=== PATIENT | female | born 1950 | race Hispanic/Latino ===

== ENCOUNTER 2018-09-19 17:49 | Observation (INO) | payer MEDICARE ==
[~2018-09-19] VITALS: Ht 167.6 cm; Wt 132.4 kg
[~2018-09-19 17:49] MED LIST: CEFDINIR300 MG PO; DIOVAN160 MG PO; FOLIC ACID1 MG PO; GABAPENTIN100 MG PO; ISOSORBIDE MONO30 MG PO; LEVOTHYROXINE300 MCG PO; LEVOTHYROXINE50 MCG PO; MELOXICAM7.5 MG PO; MUCINEX DM PO; NITROSTAT0.4 MG; NITROSTAT0.4 MG SL; PRAVASTATIN SOD10 MG PO; PROAIR HFA8.5 GM IH; QUETIAPINE FUMA25 MG PO; SPIRIVA HANDIH18 MCG INH; SYMBICORT 80-10.2 GM INH; SYMBICORT 80-46.9 GM IH; Z.0.CARVEDILOL6.25 M PO; Z.0.CELEXA40 MG PO; Z.0.DALIRESP500 MCG PO; Z.0.DIOVAN160 MG PO; Z.0.FOLIC ACID0.4 MG PO; Z.0.LANTUS 3ML100 UN SQ; Z.0.METFORMIN HCL500 PO; Z.0.NORCO 5-325 TA1 PO; Z.0.PANTOPRAZOLE SO4 PO; Z.0.SIMVASTATIN10 MG PO; Z.0.TRADJENTA5 MG PO; Z.1.FERROUS SULFAT32 PO; Z.1.POTASSIUM CHLO10 PO; [UNRECOGNIZED DRUG - OTHER] PO; [UNRECOGNIZED DRUG - OTHER] PO; [UNRECOGNIZED DRUG - OTHER] PO; [UNRECOGNIZED DRUG - OTHER] PO
--- OUTSIDE RECORDS SUMMARY | 2018-09-19 17:52 | XMS REPORT | Clinical Summary ---
Author Author [facility] Address Unknown Phone Unavailable Care Team Providers Care Criminal Justice Department Chair Name Role Phone Tigre Aguiar MD PCP Allergies No Known Allergies Medications End Date Status Medication Sig Dispensed Refills Start Date Active valsartan (DIOVAN) 320 MG Take 320 mg 0 tablet by mouth daily. Active folic acid (FOLVITE) 1 MG Take 1 mg by 0 tablet mouth daily. Active carvedilol (COREG) 6.25 Take 6.25 mg 0 MG tablet by mouth 2 (two) times a day with meals. Active citalopram (CeleXA) 40 MG Take 40 mg by 0 tablet mouth daily. Active isosorbide dinitrate Take 30 mg by 0 (ISORDIL) 30 MG tablet mouth 4 (four) times a day. Active QUEtiapine (SEROquel) 50 Take 50 mg by 0 MG tablet mouth nightly. Active insulin ASPART (NovoLOG) Inject 43 0 100 unit/mL injection Units under the skin 3 (three) times a day before meals. Active insulin detemir (LEVEMIR) Inject 83 0 100 unit/mL injection Units under the skin 2 (two) times a day. Active budesonide-formoterol Inhale 2 0 (SYMBICORT) 80-4.5 puffs as mcg/actuation inhaler needed. Active levothyroxine (SYNTHROID, Take 200 mcg 0 LEVOXYL) 200 mcg tablet by mouth every morning. Active Problems Problem Noted Date Cataract mature, total senile 04/29/2017 Family History Medical History Relation Name Comments Cancer Father Diabetes Maternal Grandmother Diabetes Mother Heart disease Mother Relation Name Status Comments Father Maternal Grandmother Mother Social History Date Tobacco Use Types Packs/Day Years Used Never Smoker Smokeless Tobacco: Never Used Tobacco Cessation: Counseling Given: No Alcohol Use Drinks/Week oz/Week Comments No Sex Assigned at Date Recorded Not on file Industry Job Start Date Occupation Not on file Not on file Not on file Travel End Travel History Travel Start No recent travel history available. Last Filed Vital Signs Not on file Plan of Treatment Health Maintenance Due Date Last Done Comments CERVICAL CANCER SCREENING 1973 BREAST CANCER SCREENING 2002 COLON CANCER SCREENING 2002 SHINGLES VACCINES (1 of 2002 2) PNEUMOCOCCAL 2017 POLYSACCHARIDE VACCINE AGE 65 AND OVER PNEUMOCOCCAL-13 2017 INFLUENZA VACCINE 04/22/2018 Implants Device Identifier Shelf Expiration Date Model / Serial / Lot Implanted Type Area Manufactur er 08/21/2018 [id number] 195 / [id number] / [id number] Lens Iol Asymet Bicnvx Ant Mltpc Intraocula Right: Eye TAMICA +19.5d 10deg 6x13mm Acrysof - r Lens LABORATORI [id number] - [id number] Implant [employer] Implanted: Qty: 1 on 04/29/2017 by David Teran MD Results Not on fileafter 09/18/2017 Insurance Payer Benefit Subscriber ID Type Phone Address Plan / Group AETNA MEDICARE AETNA xxxxxxxx HMO MEDICARE HMO/PPO [facility] ([place]) [place] [address] Advance Directives Patient has advance care planning documents on file. For more information, eze mcdaniel contact: Emmanuel Foley [address] [place] [address]
--- OUTSIDE RECORDS SUMMARY | 2018-09-19 17:52 | XMS REPORT ---
Author [facility] Address Unknown Phone Unavailable Care Team Providers Care Account Contact Associate Name Role Phone Ruthie VALADEZ Unavailable Unavailable Payers Payer Name Policy Type Policy Number Effective Date Expiration Date Problems This patient has no known problems. Allergies, Adverse Reactions, Alerts Allergy Name Allergy Type Status Severity Reaction(s) Onset Date Inactive Date Treating Clinician Comments No Known Allergies DA Active U 2018-02-03 00:00:00 Medications This patient has no known medications. Results Test Description Test Time Test Comments Text Results Atomic Results Result Comments CT ABDOMEN/PELVIS W [facility] [address] [place], [place] [address] Patient Name: CARLENE REED MR #: [id number] : 1950 Age/Sex: 66/F Req #: [id number] Adm Physician: Ordered by: LUCHO VALADEZ MD Report #: [id number] Location: ER Room/Bed: Procedure: [id number] CT/CT ABDOMEN/PELVIS W Exam Date: 07/30/17 Exam Time: 224 REPORT STATUS: Signed EXAM: CT Abdomen and Pelvis WITH contrast INDICATION: Abdominal pain, diarrhea COMPARISON: None. TECHNIQUE: Abdomen and pelvis were scanned utilizing a multidetector helical scanner from the lung base to the pubic symphysis after administration of IV contrast. Coronal and sagittal reformations were obtained. Routine protocol was performed. Scan was performed when during portal venous phase. IV CONTRAST: 100 mL of Isovue-370 ORAL CONTRAST: Water RADIATION DOSE: Total DLP: 811.35 mGy*cm Estimated effective dose: (DLP x 0.015 x size factor) mSv COMPLICATIONS: None FINDINGS: LINES and TUBES: Left posterior spinal stimulator with tip along the lower thoracic spine LOWER THORAX: Unremarkable HEPATOBILIARY: No focal hepatic lesions. No biliary ductal dilation. GALLBLADDER: There are cholecystectomy clips. SPLEEN: No splenomegaly. PANCREAS: No focal masses or ductal dilatation. ADRENALS: No adrenal nodules KIDNEYS/URETERS: Kidneys enhance symmetrically. No hydronephrosis. No cystic or solid mass lesions. No stones. GI TRACT: No abnormal distention, wall thickening, or evidence of bowel obstruction. Appendix is not clearly identified. There is however no fat stranding or adenopathy in the right lower quadrant to suggest appendicitis. PELVIC ORGANS/BLADDER: Unremarkable. LYMPH NODES: No lymphadenopathy. VESSELS: There is moderate atherosclerotic disease in the aorta and major arterial branches. PERITONEUM / RETROPERITONEUM: No free air or fluid. BONES: There are degenerative changes in the lumbar spine. SOFT TISSUES: Unremarkable. IMPRESSION: 1. No evidence of acute intra-abdominal or pelvic abnormality. Signed by: Dr. Darrion Villarreal M.D. on 07/30/2017 3:10 AM Dictated By: DARRION BAH MD 9 Transcribed By: MIGUE on 07/30/17309 COPY TO: LUCHO VALADEZ MD
[2018-09-19] MEDS ORDERED: DEXTROSE 50% SYRINGE 50 ML IV ONE (19:15)
--- NOTE | 2018-09-19 19:27 | NUR ---
1 amp of d50 given for blood sugar of 55 .
[2018-09-19 19:29] LABS: BASOPHILS % 0.2 % (0.0-1.0); EOSINOPHILS # (AUTO) 0.2 (0.0-0.4); EOSINOPHILS % 2.3 % (0.0-6.0); HEMATOCRIT 29.4 % (34.2-44.1); HEMOGLOBIN 10.2 g/dL (12.0-16.0); LYMPHOCYTES # (AUTO) 1.7 (1.0-3.2); LYMPHOCYTES % 19.1 % (18.0-39.1); MEAN CORPUSCULAR HEMOGLOBIN 32.9 pg (28-32); MEAN CORPUSCULAR HGB CONC 34.7 g/dL (31-35); MEAN CORPUSCULAR VOLUME 94.8 fL (81-99); MONOCYTES # (AUTO) 0.5 (0.2-0.8); MONOCYTES % 6.1 % (4.4-11.3); NEUTROPHILS # (AUTO) 6.4 (2.1-6.9); PLATELET COUNT 265 x10e3/uL (140-360); RED CELL DISTRIBUTION WIDTH 14.9 % (11.7-14.4)
[2018-09-19] MEDS ORDERED: DEXTROSE 5%/0.9% SOD CHL 1,000 ML IV ONE (19:30)
[2018-09-19] MEDS ORDERED: DEXTROSE 50% SYRINGE 50 ML IV STA (19:43)
[2018-09-19 19:44] LABS: ALANINE AMINOTRANSFERASE 12 IU/L (0-55); ALBUMIN/GLOBULIN RATIO 0.8 (0.8-2.0); ALKALINE PHOSPHATASE 96 IU/L (40-150); ANION GAP 13.7 mmol/L (8-16); BLOOD UREA NITROGEN 19 mg/dL (7-26); BUN/CREATININE RATIO 22 (6-25); CALCIUM 8.6 mg/dL (8.4-10.2); CARBON DIOXIDE 28 mmol/L (22-29); CHLORIDE 101 mmol/L (98-107); CREATININE, SERUM 0.86 mg/dL (0.57-1.11); EST GLOMERULAR FILTRATION RATE > 60 ML/MIN (60-); MAGNESIUM 2.2 MG/DL (1.3-2.1); POTASSIUM 3.7 mmol/L (3.5-5.1); SODIUM 139 mmol/L (136-145)
[2018-09-19 19:58] LABS: GLUCOSE 46 mg/dL (74-118)
[2018-09-19 20:06] LABS: CLARITY,URINE CLEAR (CLEAR); COLOR,URINE YELLOW (YELLOW)
[2018-09-19 20:07] LABS: BILIRUBIN,URINE NEGATIVE (NEGATIVE); KETONES,URINE NEGATIVE (NEGATIVE); LEUKOCYTE ESTERASE ,URINE TRACE (NEGATIVE); NITRITE,URINE NEGATIVE (NEGATIVE); PROTEIN,URINE DIPSTICK NEGATIVE (NEGATIVE); URINE UROBILINOGEN 0.2 mg/dL (0.2 - 1)
[2018-09-19 20:10] LABS: BACTERIA,URINE FEW /HPF; EPITHELIAL CELLS,URINE FEW /LPF; RBC,URINE 0-5 /HPF (0-5)
[2018-09-19] MEDS ORDERED: ACETAMINOPHEN 325 MG TAB PO ONE (20:45)
--- NOTE | 2018-09-19 21:41 | NUR ---
pt's daughter adilene cALLED WITH CONTACT NUMBER FOR PT TO CALL FOR A [facility]--[phone]
[2018-09-20] VITALS (8 sets, daily range): BP systolic 122–170; BP diastolic 65–88
--- OUTSIDE RECORDS SUMMARY | 2018-09-20 01:23 | XMS REPORT | Clinical Summary ---
Author Author [facility] Address Unknown Phone Unavailable Care Team Providers Care Administration Vice President Name Role Phone Tigre Aguiar MD PCP [...] Area Manufactur er 08/21/2018 [id number] 195 / [id number] / [id number] Lens Iol Asymet Bicnvx Ant Mltpc Intraocula Right: Eye TAMICA +19.5d 10deg 6x13mm Acrysof - r Lens [employer]ATORI [id number] - [id number] Implant [employer] Implanted: Qty: 1 on 04/29/2017 by David Teran MD Results Not on fileafter 09/19/2017 Insurance Payer Benefit Subscriber ID Type Phone Address Plan / Group AETNA MEDICARE AETNA xxxxxxxx HMO MEDICARE HMO/PPO [facility] ([place]) [place] [address] Advance Directives Patient has advance care planning documents on file. For more information, eze mcdaniel contact: Emmanuel Foley [address] [place] [address]
[2018-09-20] MEDS ORDERED: LEVETIRACETAM500 MG PO (01:36)
[2018-09-20] MEDS ORDERED: LEVEMIR (01:36)
[2018-09-20] MEDS ORDERED: FUROSEMIDE80 MG PO (01:36)
[2018-09-20] MEDS ORDERED: HYDROCODON-ACE1 EA11 PO (01:36)
[2018-09-20] MEDS ORDERED: LEVOTHYROXINE75 MCG PO (01:39)
[2018-09-20] MEDS ORDERED: CARVEDILOL6.25 MG PO (01:39)
[2018-09-20] MEDS ORDERED: SYMBICORT 16010.2 GM INH (01:39)
[2018-09-20] MEDS ORDERED: NOVOLOG100 UNITS1 (01:39)
[2018-09-20] MEDS ORDERED: LOSARTAN POTAS100 MG PO (01:39)
[2018-09-20] MEDS ORDERED: CITALOPRAM HBR40 MG PO (01:39)
--- NOTE | 2018-09-20 02:16 | NUR ---
Pt received from ER. Pt A&O and in no apparent distress. Pt put on 2LNC and given walker to ambulate. Pt on D5 NS @ 100ml. Pt has no current complaints of pain and last BS was 93. All safety measures ensured, bed alarm on, and pt call reyez near. Pt encouraged to use call reyez for assistance.
--- NOTE | 2018-09-20 06:53 | NUR ---
handoff report and walking rounds with outgoing night filler nurse.
--- NOTE | 2018-09-20 06:56 | NUR ---
report given to oncoming nurse and walking rounds complete.
[2018-09-20] MEDS: LEVOTHYROXINE SODIUM 75 MCG TAB PO SCH (07:30)
[2018-09-20] MEDS: BUDESONIDE/FORMOTEROL 160/4.5MCG INHALER INH SCH (07:47)
[2018-09-20] MEDS: CITALOPRAM HYDROBROMIDE 20 MG TAB PO SCH (08:11)
[2018-09-20] MEDS: CARVEDILOL 3.125 MG TAB PO SCH ×2 (08:12→16:57)
[2018-09-20] MEDS: ISOSORBIDE MONONITRATE 30 MG TAB CR PO SCH (08:13)
[2018-09-20] MEDS: LEVETIRACETAM 500 MG TAB PO SCH ×2 (08:13→16:57)
[2018-09-20] MEDS: FUROSEMIDE 40 MG TAB PO SCH (08:13)
[2018-09-20] MEDS: LOSARTAN POTASSIUM 100 MG TAB PO SCH (08:13)
[2018-09-20] MEDS: GABAPENTIN 100 MG CAP PO SCH ×2 (08:13→16:57)
[2018-09-20] MEDS ORDERED: CEFTRIAXONE SOD 1 GM VIAL IV SCH (11:45)
[2018-09-20] MEDS ORDERED: DEXTROSE 50% SYRINGE 50 ML IV PRN (11:45)
--- NOTE | 2018-09-20 12:26 | History and Physical ---
CHIEF COMPLAINT: Low blood sugar whole day yesterday. HPI: This is a 67-year-old female with history of CA breast, left mastectomy, and mass to the lung, not getting good appetite, not eating good. So, the patient was taking insulin and blood sugar dropped yesterday. Patient came to the ER. ER blood sugar was 30s and 40s. Patient was admitted for observation. No chest pain. No abdominal pain. No nausea. No vomiting. No diarrhea. No constipation. No leg pain. No leg swelling. No cough. No backache. PAST MEDICAL HISTORY 1. Carcinoma of breast. 2. 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 3. Diabetes mellitus type 1. 4. Hypertension. 5. COPD. 6. Obstructive sleep apnea. PAST SURGICAL HISTORY: History of left mastectomy. HABITS: Denies smoking. Denies alcohol. Denies illicit drug use. SOCIAL HISTORY: Patient lives with 95-year-old dad. MEDICATION LIST: Attached. REVIEW OF SYSTEMS CONSTITUTIONAL: Generalized fatigue and weakness. HEENT: No diplopia. No blurring of vision. CARDIOPULMONARY: No chest pain. No shortness of breath. ALIMENTARY: No nausea. No vomiting. MUSCULOSKELETAL: No joint pain. CENTRAL NERVOUS SYSTEM: No focal weakness. No seizures. PHYSICAL EXAMINATION GENERAL: This is a 67-year-old female who is alert and oriented x3, no gross distress. VITAL SIGNS: Temperature 98.2, pulse 58, respiratory rate 19, blood pressure 170/75. HEENT: Head is atraumatic and normocephalic. Pupils bilaterally equal and reactive to light. Extraocular muscles intact. NECK: Supple. No JVD. No carotid bruit. LUNGS: Clear to auscultation and percussion bilaterally. No added sound. HEART: S1 and S2. Regular rate and rhythm. No S3. No S4. No murmurs. ABDOMEN: Soft and nontender. No guarding. No rigidity. EXTREMITIES: No edema. Peripheral pulses +1. FIRE TRUCK DRIVER: Grossly nonfocal. LABORATORY DATA: Sodium 139, potassium 3.7, sugar 46, BUN and creatinine normal. LFTs normal. White count 8.8, hemoglobin 10.2, hematocrit 29.4, platelet is 265. Urine test, leukocyte, wbc 6 to 10. Will use IV Rocephin 1 g q.24 hours. Urine culture. Off IV fluid. Monitor blood sugar a.c. and at bedtime. Endocrine consult, Dr. Junior. Hold insulin Levemir and NovoLog. Job#: [id number] BHASKAR
[2018-09-20] MEDS: CEFTRIAXONE SOD 1 GM/NS 50 ML 50 ML IV SCH (12:32)
--- NOTE | 2018-09-20 13:53 | Diagnostic Imaging Report ---
EXAMINATION: CHEST 2 VIEWS INDICATION: Lung cancer, hypoglycemia COMPARISON: Chest x-ray 06/30/2012, a chest x-ray from 2016 is not available for comparison. FINDINGS: PA and lateral views TUBES and LINES: MediPort catheter terminates lateral to the SVC. Spinal stimulator is stable in position. LUNGS: Lungs are well inflated. There is no evidence of pneumonia or pulmonary edema. PLEURA: No pleural effusion or pneumothorax. HEART AND MEDIASTINUM: The cardiomediastinal silhouette is unremarkable.. BONES AND SOFT TISSUES: No focal osseous lesions. Surgical clips are in the left axilla. UPPER ABDOMEN: No free air under the diaphragm. IMPRESSION: 1. Malpositioned MediPort catheter. Correlation with x-rays obtained at the time of catheter placement are needed to confirm stability. No pneumothorax. 2. No acute pulmonary process. Signed by: Dr. Jeff Alex MD on 09/20/2018 1:49 PM
[2018-09-20] MEDS ORDERED: INSULIN LISPRO 100 UNIT/1 ML 3ML VIAL SQ SCH (16:30)
[2018-09-20] MEDS: INSULIN LISPRO 100 UNIT/1 ML 3ML VIAL SQ SCH ×5 (16:30→20:58)
[2018-09-20 16:32] LABS: FREE T4 (FREE THYROXINE) 0.95 ng/dL (0.9-1.8); THYROID STIMULATING HORMONE 1.518 uIU/mL (0.350-4.940)
[2018-09-20] MEDS ORDERED: INSULIN DETEMIR 100 UNIT/ML PEN SQ SCH (17:00)
--- NOTE | 2018-09-20 18:15 | Consultation ---
DATE OF CONSULTATION: September 20, 2018 ENDOCRINE CONSULTATION PATIENT OF: Dr. Tigre Aguiar. Thank you very much for referring this patient. This is a 67-year-old lady who is referred to me for evaluation of diabetes mellitus and hypoglycemia. Patient was brought to the emergency room at [facility] with altered mental status and blood sugar of 46. She was given some dextrose, but despite of that her blood sugars stayed around 80 to 90. She was admitted to the hospital for further evaluation. At home, the patient takes about 80 units of Lantus twice a day and Humalog about 46 to 48 with each meal. In the last few days, patient has not been able to eat well, but she continued taking her insulin scheduled. Patient was diagnosed to have lung cancer recently. She has bilateral lung cancer and was supposed to have chemotherapy done next week. She also is status post breast cancer for which she received chemotherapy in May and December. Patient also has history of hypothyroidism. She is on Synthroid 0.075 mg once daily. She also has history of coronary artery disease, congestive cardiac failure, hypertension, and hyperlipidemia. PHYSICAL EXAMINATION GENERAL: Today, the patient is alert, awake, a little bit apprehensive. She is moderately overweight. VITAL SIGNS: Her heart rate is around 78 and blood pressure 140/80 mmHg. HEENT: Essentially unremarkable. Thyroid is palpable. Clinically, she looks near euthyroid. CHEST: Bilateral vesicular breathing. She has got bilateral bronchospasm and basilar rales. CARDIAC: Both 1st and 2nd heart sounds. There is no 3rd or 4th heart sound. Ejection sound grade 2/6. EXTREMITIES: Patient has evidence of diabetic sensory neuropathy in both lower extremities. CLINICAL IMPRESSION 1. Hypoglycemia, multifactorial, probably related to huge insulins dose as well as poor oral intake. 2. Lung cancer. 3. Status post breast cancer. 4. Congestive cardiac failure. 5. Coronary artery disease. 6. Hypertension. 7. Hypothyroidism. The plan at this time is to monitor her blood sugars closely. We will do a hemoglobin A1c, thyroid function test, and restart her insulin scheduled but on a smaller dose and I gave her all the instructions to the patient about how to adjusting insulin dose when her oral intake is low or when she is getting chemotherapy. Thanks again for referring this patient. I will be following this patient with you. Job#: [id number] BLAIR
--- NOTE | 2018-09-20 19:22 | NUR ---
Report received and walking rounds complete. Pt resting in bed and in no apparent distress. Pt on 2LNC and uses walker to ambulate. Pt has no IV access and awaiting for IV start. All safety measures ensured, bed alarm on, and pt call reyez near. Pt encouraged to use call reyez for assistance.
[2018-09-20] MEDS ORDERED: SIMVASTATIN 20 MG TAB PO SCH (21:00)
--- NOTE | 2018-09-20 22:00 | NUR ---
New IV placed R Forearm 20 G S/L.
[2018-09-20] MEDS: HYDROCODONE/APAP 5MG-325MG TAB PO PRN (22:45)
[2018-09-21] VITALS: BP 185/76
[2018-09-21 04:00] VITALS: BP 144/66
[2018-09-21 05:20] LABS: ANION GAP 11.1 mmol/L (8-16); BLOOD UREA NITROGEN 14 mg/dL (7-26); BUN/CREATININE RATIO 17 (6-25); CALCIUM 8.8 mg/dL (8.4-10.2); CARBON DIOXIDE 32 mmol/L (22-29); CHLORIDE 100 mmol/L (98-107); CREATININE, SERUM 0.82 mg/dL (0.57-1.11); EST GLOMERULAR FILTRATION RATE > 60 ML/MIN (60-); GLUCOSE 212 mg/dL (74-118); POTASSIUM 4.1 mmol/L (3.5-5.1); SODIUM 139 mmol/L (136-145)
[2018-09-21 05:42] LABS: FREE T4 (FREE THYROXINE) 0.85 ng/dL (0.9-1.8); THYROID STIMULATING HORMONE 3.155 uIU/mL (0.350-4.940)
--- NOTE | 2018-09-21 07:18 | NUR ---
Report given to oncoming nurse and walking rounds complete.
[2018-09-21] MEDS: INSULIN LISPRO 100 UNIT/1 ML 3ML VIAL SQ SCH ×6 (07:30→17:00)
[2018-09-21 07:46] VITALS: BP 161/72
[2018-09-21] MEDS: BUDESONIDE/FORMOTEROL 160/4.5MCG INHALER INH SCH (08:37)
[2018-09-21] MEDS: CITALOPRAM HYDROBROMIDE 20 MG TAB PO SCH (09:29)
[2018-09-21] MEDS: LEVOTHYROXINE SODIUM 75 MCG TAB PO SCH (09:29)
[2018-09-21] MEDS: CARVEDILOL 3.125 MG TAB PO SCH ×2 (09:35→17:56)
[2018-09-21] MEDS: FUROSEMIDE 40 MG TAB PO SCH (09:36)
[2018-09-21] MEDS: GABAPENTIN 100 MG CAP PO SCH ×2 (09:36→17:57)
[2018-09-21] MEDS: ISOSORBIDE MONONITRATE 30 MG TAB CR PO SCH (09:36)
[2018-09-21] MEDS: LOSARTAN POTASSIUM 100 MG TAB PO SCH (09:36)
[2018-09-21] MEDS: LEVETIRACETAM 500 MG TAB PO SCH ×2 (09:36→17:56)
--- NOTE | 2018-09-21 10:24 | NUR ---
SOCIAL WORK INITIAL ASSESSMENT Reimbursement Consultant to bedside to discuss plan of care with patient/family. CM/SW role and care transitions discussed. Anticipated discharge plan discussed along with duration of care. CM/SW discussed patients right to make decisions in care. CM/SW work hours given. Patient lives: IN OWN HOUSE WITH DAD Admit/Transfer: VIA ED FROM HOME POA/Emergency contact: DAUGHTER HERMAN [phone] Current/Previous Home Health: HAS A NURSE THAT COMES 1 TIME A WEEK THAT IS SET UP THROUGH INSURANCE BUT THINKS IT IS ENDING THIS WEEK. PCP/Follow-up Care: Bossman CHAUDHRY Current/Previous DME: CPAP O2 WALKER AND A CANE Other Services: NONE Employment Status: DISABILITY Areas of Concerns: NA Referral Needs: NA Education Needs: NA IMM/FRY given and signed (if applicable): UPON ADMISSION Goal for discharge: RETURN HOME INDEPENDENTLY CM/SW left business card at the bedside with contact information. Name and number was also written on the patients whiteboard. Patient verbalized understanding of discussion. CM will follow-up with ongoing discharge and transition of care needs.
[2018-09-21 11:11] VITALS: BP 161/72
[2018-09-21 11:39] VITALS: BP 110/55
[2018-09-21] MEDS: CEFTRIAXONE SOD 1 GM/NS 50 ML 50 ML IV SCH (12:30)
--- NOTE | 2018-09-21 13:00 | NUR ---
Report given to oncoming nurse. Patient is resting in bed without any complaints voiced. Call reyez within reach.
[2018-09-21] MEDS: HYDROCODONE/APAP 5MG-325MG TAB PO PRN (13:03)
--- NOTE | 2018-09-21 13:50 | NUR ---
dr clarke on unit, pt ok to dc once cleared by consults. dr dan on unit, updated pt insulin regime and ok to dc. per dr clarke, consulted and notified dr hannon regarding cxr showing cath misaligned. dr hannon stated would see pt this afternoon/evening. pt ok to dc once cleared by dr hannon.
[2018-09-21 15:29] VITALS: BP 125/60
--- NOTE | 2018-09-21 15:36 | Discharge Summary ---
PATIENT LOCATION: Room 176. CONSULTATIONS: Dr. Junior, train operations supervisor. Dr. Reyna, oncologist. FINAL DIAGNOSIS: Severe hypoglycemia, resolved. OTHER DIAGNOSES 1. Diabetes mellitus type 2 with insulin resistance. 2. Hypertension. 3. Hyperlipidemia. 4. Carcinoma of breast with lung metastasis. 5. Obstructive sleep apnea. 6. Morbid obesity. 7. Malposition of Port-A-Cath on chest x-ray. 8. Urinary tract infection. BRIEF HOSPITAL COURSE: A 67-year-old female was admitted from ER with complaints of severe low blood glucose at home. Patient was feeling weak and lost appetite. Her blood glucose went up to 30s and 40s at home as per report, and patient's insulin regimen was kept on hold. Dr. Junior, train operations supervisor, was consulted. The patient was kept on sliding scale. Her blood glucose level got improved. Patient still has a low appetite. Dr. Junior adjusted her insulin regimen. Patient was also found having UTI on urinalysis. She was afebrile, does not have any leukocytosis. Urine culture did not show any growth here. She was started on ceftriaxone IV. Patient wants to go home today. A chest x-ray did not show any sign of pneumonia or pleural effusion, but her Port-A-Cath was noted in malposition. Dr. Kiersten Reyna, her regular oncologist, was consulted for Port-A-Cath malpositioning. Patient would be discharged after clearance by Dr. Reyna. She is prescribed Macrobid p.o. for UTI. Patient is advised to follow the recommendation of Dr. Junior for insulin regimen and follow up with him in the office. Patient was otherwise uneventful during this hospital stay. VITALS: BP 110/55, pulse 73, temp 98.4, respiration 18, SpO2 94% at room air. PHYSICAL EXAMINATION GENERAL: Alert, not in acute distress. Sitting at bedside. Denies any complaints, symptoms. HEENT: No pallor. No icterus. Pupils equally reacting. Oral mucosa moist. NECK: No JVD, no carotid bruit. No lymphadenopathy, no thyromegaly. HEART: S1 and S2 regular. No murmur. LUNGS: Clear to auscultation. ABDOMEN: Soft, nontender. No palpable mass. EXTREMITIES: No edema, cyanosis, clubbing. NEUROLOGICAL: Motor grossly equal on both sides. LAB DATA: CBC: WBC 8.8, hemoglobin 10, hematocrit 29, platelet 265, MCV 94, RDW 14, neutrophil 72, lymphocyte 19. Chemistry panel: Sodium 139, potassium 4.1, chloride 100, CO2 32, anion gap 7, BUN 14, creatinine 0.8, glucose 212. Hemoglobin A1c 5.7. Calcium 8.8, magnesium 2.2. Total bilirubin 0.4, AST 23, ALT 12, alk phos 96. Total protein 7.0, albumin 3.0, globulin 4.0. TSH 1.51, free T4 0.95. Urinalysis at presentation negative for protein, glucose, ketone, leukocyte esterase trace, WBC 6-10, RBC 0-5. MICROBIOLOGY DATA: Urine culture no growth reported yet. RADIOLOGICAL DATA: X-ray of chest two views: Malposition Mediport catheter. No acute pulmonary process. Cardiomediastinal shadow is unremarkable. MEDICATION ON DISCHARGE: Please refer to the med reconciliation sheet. Levemir insulin dose is changed to [address] Junior. Other medication as before. DIET: ADA regular 2 g sodium, low cholesterol diet. ACTIVITY: As tolerated. Fall precaution advised. INSTRUCTIONS AT DISCHARGE: Continue medication as per discharge recommendation. Follow up with Dr. Junior, train operations supervisor, as available. Follow up with Dr. Reyna, oncologist, as available. Follow up with PCP, Dr. Tigre Aguiar, in 1 week with home CBG record, home fingersticks glucose record. Repeat CBC and CMP in 1 week. NORMA MOCTEZUMA MD Job#: [id number] EV
[2018-09-21] MEDS ORDERED: INSULIN LISPRO 100 UNIT/1 ML 3ML VIAL SQ SCH (16:30)
[2018-09-21] MEDS ORDERED: INSULIN DETEMIR 100 UNIT/ML PEN SQ SCH (17:00)
--- NOTE | 2018-09-21 18:46 | NUR ---
per dr hannon, pt ok to dc and f/u in office on friday regarding port. reviewed dc instruction with patient, verbalized understanding.
[2018-09-22] MEDS ORDERED: LEVOTHYROXINE SODIUM 75 MCG TAB PO SCH (06:00)
== END 2018-09-21 18:44 | disposition home or self-care (01) ==
LOC: ER 17:49 → INTOOBSV 09-20 01:20 → ERHOLD 09-20 01:20 → IMCU 09-20 02:09
PROVIDERS: ADMIT Internal Medicine; ATTEND Internal Medicine
DX: E10.649 Type 1 diabetes mellitus with hypoglycemia without coma (principal); N30.00 Acute cystitis without hematuria; E78.5 Hyperlipidemia, unspecified; G47.33 Obstructive sleep apnea (adult) (pediatric); Z79.4 Long term (current) use of insulin; I11.0 Hypertensive heart disease with heart failure; I50.9 Heart failure, unspecified; E03.9 Hypothyroidism, unspecified; E66.01 Morbid (severe) obesity due to excess calories; Z68.42 Body mass index [BMI] 45.0-49.9, adult; Z85.3 Personal history of malignant neoplasm of breast; Z85.118 Personal history of other malignant neoplasm of bronchus and lung; Z83.3 Family history of diabetes mellitus; Z82.49 Family history of ischemic heart disease and other diseases of the circulatory system; T82.524A Displacement of infusion catheter, initial encounter
CPT/HCPCS: 36415 ×3; 71046; 80048; 80053; 81001; 82948 ×3; 83036 ×2; 83735; 84439 ×2; 84443 ×2; 84481; 85025; 87086; 99284; G0378 ×2; J0696 ×2; J7042; J7799